=== PATIENT | female | born 1955 | race Caucasian/White ===

== ENCOUNTER → 2017-01-25 | Outpatient (CLI) | payer OTHER ==
[~2017-01-25] MED LIST: CHOL100017 PO; CYCL-208 PO; OMEG500C7 PO; PRED-214 PO; VARE1TAB PO
--- NOTE | 2017-01-25 09:00 | DI ---
Indication: ITS.REASON: Z12.2 ENCOUNTER FOR SCREENING FOR LUNG CA PROCEDURE: CT LUNG SCREENING: Encounter: Initial Comparison: None Technique: Axial noncontrast CT imaging of the chest was performed on a [employer] Aquilion Prime [address] scanner using an ACR approved low dose lung cancer screening protocol. 1 mm thick axial slices were obtained with coronal and sagittal two-dimensional reformats. Automated Exposure Control and Iterative Reconstruction dose lowering techniques were utilized. Dose (DLP): 171.6 mGy.cm Prerequisites: This exam was performed in a facility that meets the criteria for the LDCT screening program. Data regarding this exam was submitted to an approved registry. The order for this exam indicates that it came as a result of a lung cancer screening counseling and shared decision-making visit that included all of the elements required of such a visit. The radiologist interpreting this exam meets the CMS criteria for the LDCT lung cancer screening program. Standardized reporting is followed using the ACR Lung-RADS nomenclature and is extracted using a [employer] reporting system. Findings: Mild paraseptal emphysema. Minimal medial basilar atelectasis or scarring. No consolidative pneumonia. No pleural effusion or pneumothorax. Central airways are patent. No evidence of bronchial wall thickening. I do not identify any pulmonary nodules or masses. No axillary or mediastinal adenopathy. Postsurgical changes in the left breast with surgical clips near the pectoralis musculature. Heart size is normal without pericardial effusion. The upper abdomen shows no acute findings. Mild coronary artery atherosclerotic calcification. Bone windows are unremarkable. Impression: No acute abnormality. No pulmonary nodules identified. Assessment: Lung-RADS category 1: Negative. Recommend continued annual low dose CT lung cancer screening in 12 months. .
== END ==
LOC: IMA 07:42
PROVIDERS: ATTEND Nurse Practitioner Family
DX: Z12.31 Encounter for screening mammogram for malignant neoplasm of breast (principal); C50.912 Malignant neoplasm of unspecified site of left female breast; N64.59 Other signs and symptoms in breast; R92.8 Other abnormal and inconclusive findings on diagnostic imaging of breast; Z08 Encounter for follow-up examination after completed treatment for malignant neoplasm; Z12.2 Encounter for screening for malignant neoplasm of respiratory organs; Z87.891 Personal history of nicotine dependence
CPT/HCPCS: 77063; G0202; G0297

== ENCOUNTER → 2017-01-29 | Outpatient (CLI) | payer OTHER | LOC: WC.BC 10:14 | PROVIDERS: ATTEND Nurse Practitioner Family | DX: D48.61 Neoplasm of uncertain behavior of right breast (principal); R92.2 Inconclusive mammogram; N63 Unspecified lump in breast | CPT/HCPCS: 76642; G0206 ==

== ENCOUNTER → 2017-01-31 | Outpatient (CLI) | payer OTHER ==
[~2017-01-31] MED LIST changes: +LIDOCAINE 1% 30ml (STERI-PAK) ONE
== END ==
LOC: IMA 13:12
PROVIDERS: ATTEND Nurse Practitioner Family
DX: C50.411 Malignant neoplasm of upper-outer quadrant of right female breast (principal); Z17.0 Estrogen receptor positive status [ER+]; R92.2 Inconclusive mammogram
CPT/HCPCS: 19083; G0206

== ENCOUNTER → 2017-02-20 | Outpatient (CLI) | payer OTHER ==
[~2017-02-20] MED LIST changes: -LIDOCAINE 1% 30ml (STERI-PAK) ONE
== END ==
LOC: LABN 09:23
PROVIDERS: ATTEND Internal Medicine Hematology & Oncology
DX: D50.8 Other iron deficiency anemias (principal)
CPT/HCPCS: 82272

== ENCOUNTER 2017-03-08 08:56 | Day surgery (SDC) | payer OTHER ==
[~2017-03-08] VITALS: Ht 165.1 cm; Wt 104.3 kg
[~2017-03-08 08:56] MED LIST changes: +ATOR10TA64 PO; +CHOL200014 PO; -CYCL-208 PO; +FERR325C PO; +FOLI0.4T2 PO; +LIDOCAINE 1% (10mg/ml) 2ml SDV INJ ONE; +LR 1,000 ML IV SCH; +MAGN250T33 PO; +MELO-273 PO; +TRAM50TA4 PO; +TRIA1TAB3 PO
[2017-03-08 09:03] VITALS: BP 143/82; PULSE 67; RESP 14; TEMP 98.2; O2SAT 93; Ht 165.1 cm; Wt 104.3 kg
[2017-03-08] MEDS ORDERED: PROPOFOL 500mg 50 ML IV ONE ×2 (09:22→12:02)
--- NOTE | 2017-03-08 10:26 | ANESPREOP ---
Anesthesia Record Date and Time DATE: 03/08/17 TIME: 09:25 Pre-Op Diagnosis Positive Hemoccult Proposed Surgical Procedure COLONOSCOPY AND EGD NPO since: Midnight Allergies: Coded Allergies: Iodinated Contrast Media - Oral and (Verified Allergy, Severe, HIVES, 03/08) pregabalin (Verified Adverse Reaction, Mild, ACTS DRUNK, 03/08/17) Uncoded Allergies: BROCCOLI (Allergy, Severe, ANAPHLAXIS, 02/16/12) Ht/Wt/BMI Height: 5 ' 5.00 " Weight: 104.300 kg BMI: 38.3 kg/m2 Vital Signs Date Time Temp Pulse Resp B/P Pulse Ox O2 Delivery O2 Flow Rate FiO2 03/08/17 09:03 98.2 67 14 143/82 93 Room Air Medications Inpatient Medications Current Medications Medications (Trade) Dose Ordered Sig/Jeremy Start Time Stop Time Status Last Admin Dose Admin Lactated Ringer's (Lactated Ringers) 1,000 ml @ 50 mls/hr Q20H 03/08/17 07:00 Atorvastatin Calcium (Atorvastatin Calcium) 10 Mg Tablet, 1 TAB PO HS, (Reported ) Last Taken: on 03/07/17 0800 Cholecalciferol (Vitamin D) 1,000 Unit Tablet, 3,000 UNIT PO DAILY, (Reported) Last Taken: on 03/07/17 0800 Cholecalciferol (Vitamin D3) (Vitamin D3) 2, 000 Unit Tablet, 1 TAB PO BID, (Reported) Last Taken: on 03/07/17 0800 Ferrous Sulfate (Iron) 325 Mg Capsule.er, 1 TAB PO WB, (Reported) BEST WITH FOOD. Last Taken: on 03/07/17 0800 Folic Acid (Folic Acid) 0.4 Mg Tablet, 1 TAB PO DAILY, (Reported) Last Taken: on 03/07/17 0800 Magnesium Oxide (Magnesium) 250 Mg Tablet, 250 MG PO BID, (Reported) Last Taken: on 03/07/17 0800 Meloxicam (Meloxicam) 7.5 Mg Tablet, 7.5 MG PO DAILY, (Reported) Last Taken: on 03/06/17 0800 Tramadol HCl (Tramadol HCl) 50 Mg Tablet, 50 MG PO Q4H, (Reported) Take 1 tablet, by mouth, every 4 hours. Last Taken: on 02/22/17 Triamterene/Hydrochlorothiazid (Triamterene-Hctz 37.5-25 mg Tb) 1 Each Tablet, 1 TAB PO DAILY, (Reported) Last Taken: on 03/07/17 0800 Currently on Beta Leslie: No Medical/Surgical History Anesthesia PMH: Reports: *Hypertension, Anesthesia Reactions (SLOW TO WAKE, NO AIRWAY ISSUES), Arthritis, Cancer (BREAST CA HX AND CURRENT), Deep Vein Thrombosis, Hyperlipidemia, Obesity, Sleep Apnea, Denies: *Angina, *Diabetes, * Dyspnea, *[place], Asthma, CHF, COPD, CVA/Stroke/TIA, Clotting Problems, Glaucoma, Headaches (HX CLUSTER HEADACHES), Hepatitis, Hiatal Hernia, Malignant Hyperthermia, Pneumonia (HX OF), Reflux, Renal Disease, Rheumatic Fever, Seizures, Thyroid Disease, Tuberculosis Smoking Status: Former smoker Has pt. smoked today?: No Use Chewing Tobacco?: No Second Hand Exposure: No Substance Use Type: does not use Alcohol Intake: none HX of Last Menstrual Period: IN HER EARLY 50'S Past Surgical History Orthopedic Surgeries: No Abdominal Surgeries: Yes - APPY Genitourinary Surgeries: No Cardiac Surgeries: No Endocrine Surgeries: No Reproductive Surgeries: No Neurological Surgeries: No Ear Surgeries: No Nose Surgeries: No Throat Surgeries: Yes - T&A Other Surgeries: Yes - COLONOSCOPY, LEFT BREAST LUMPECTOMY Anesthesia Adverse Reactions: FOUND none Family Hx of Anesthesia Advers: none Hx of Motion Sickness: No Pertinent Findings EKG Rhythm: Sinus Rhythm EKG Ectopy: PAC Physical Exam Respiratory: Lungs clear Cardiovascular: FOUND Regular rate, rhythm Airway Assessment Mallampati Score: II TMD: 3 Fingerbreadths Neck Extension: Fair Overall Assessment: No Airway Concerns ASA: 3 Plan Anesthesia Plan: TIVA Discussion Discussed risks/options/alternatives of anesthesia and questions answered. Patient consents. Nursing pain assessment noted. Present: Spouse Attestation Statement Prior to the delivery of any anesthetic medication, I examined the patient, developed the plan, obtained the patient's consent and discussed the risk and benefits of the procedure with the patient/guardian. JOHN PAUL LINARES CRNA March 08, 2017 09:28
[2017-03-08 12:16] VITALS: BP 95/63; PULSE 76; RESP 16; TEMP 98.5; O2SAT 96
[2017-03-08 12:31] VITALS: BP 105/65; PULSE 68; RESP 20; O2SAT 98
[2017-03-08 12:46] VITALS: BP 117/72; PULSE 62; RESP 14; O2SAT 100
[2017-03-08 13:01] VITALS: BP 129/67; PULSE 63; RESP 16; TEMP 97.6; O2SAT 100
[2017-03-08 13:04] LABS: ALBUMIN 3.7 G/DL (3.5-5.0); ALBUMIN/GLOBULIN RATIO 1.4 RATIO (1.1-2.2); ALKALINE PHOSPHATASE 115 U/L (38-126); ALT (SGPT) 37 U/L (9-52); ANION GAP 13 MEQ/L (5-15); AST (SGOT) 27 U/L (14-36); BUN/CREATININE RATIO 6 RATIO (6-26); CALCIUM 8.7 MG/DL (8.4-10.2); CHLORIDE 107 MEQ/L (98-107); CO2 - CARBON DIOXIDE 26 MEQ/L (22-30); CREATININE 1.1 MG/DL (0.7-1.2); GLOMERULAR FILTRATION RATE 50; GLUCOSE 107 MG/DL (65-110); SODIUM 146 MEQ/L (134-144); TOTAL PROTEIN 6.4 G/DL (6.3-8.2)
--- NOTE | 2017-03-08 13:53 | ANESPO ---
Post-Op Note Date 03/08/17 Time: 13:11 Status Pt Participated in Evaluation: Pt participated in person Vital Signs Date Time Temp Pulse Resp B/P Pulse Ox O2 Delivery O2 Flow Rate FiO2 03/08/17 13:01 97.6 63 16 129/67 100 Room Air Respiratory Function: Airway patent Cardiovascular Function: Regular pulse Telemetry Pattern: SR Mental Status: Alert/oriented Pain Level Intensity: 0 Hydration: IV infusing Complications during Recovery None apparent Follow-Up Instructions Instructions Per Surgeon JOHN PAUL LINARES CRNA March 08, 2017 13:52
--- NOTE | 2017-03-09 11:07 | OPNOTEF ---
.DATE OF PROCEDURE. 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 PROCEDURE Esophagogastroduodenoscopy with gastric polypectomy, colonoscopy with biopsies of a suspicious mass involving ileocecal valve region via cold biopsy technique. ANESTHESIA TIVA BRIEF HISTORY/INDICATIONS Mrs. Ragland is a 61-year-old female who is known my surgical practice. I recently saw the patient in regard to a newly discovered breast cancer. The patient recently saw oncology and underwent Hemoccult card testing as a result of her anemia. These did return as positive in nature. The patient also had undergone prior Hemoccult card testing through her private care physician which was negative. Nonetheless, as a result of her newly discovered heme-positive stools and her history for anemia, it was recommended to the patient she undergo bidirectional endoscopy. Patient presents today to undergo these procedures. For completeness, please refer to notes included in the patient's chart. FINDINGS Upon upper endoscopy the patient was found to have a benign gastric polyp within the antrum of the stomach. Otherwise, esophagus, stomach and duodenum were within normal limits. Upon colonoscopy, there was no evidence for angiodysplastic lesion or gato malignancy. The patient was found a moderate number of diverticula. Unfortunately, the patient was found to have a mass involving the terminal ileum/ileocecal valve region. This mass was highly suspicious for that of underlying adenocarcinoma. Biopsies were obtained from the mass via cold biopsy technique. DESCRIPTION OF PROCEDURE After informed consent was obtained, the patient was brought to the operative suite and placed on the table in a left lateral decubitus position. The patient subsequently underwent total intravenous anesthesia by the nurse warehouse distribution associate per my request. Formal time-out was then completed. Next, an Olympus gastroscope was inserted into the oral hypopharynx and subsequently the esophagus under direct visualization. Gastroscope was advanced through the esophagus, stomach, pylorus, duodenal bulb, into second portion of duodenum. Scope was then slowly withdrawn. First and second portions of duodenum were within normal limits. No evidence of duodenitis or ulcerations was noted. There was no evidence for old blood upon the surface of the mucosa. The scope was withdrawn back to prepyloric region and antrum. Within the antrum, the patient was found to have a polyp on the order of 5-6 mm in diameter. This polyp was grasped and removed in its entirety via cold biopsy technique. A J-maneuver was performed. Cardia and fundus were within normal limits. Scope was allowed to straighten and slowly withdrawn and the remaining corpus of the stomach was well visualized, again without noted abnormalities. The scope was then withdrawn back to the level of the diaphragm. Squamocolumnar junction was located at the level of the diaphragm and was well demarcated with no endoscopic evidence for Shin's metaplasia. Scope was then slowly withdrawn and the remaining esophageal mucosa found within normal limits. Next, attention was direct towards performing a colonoscopy. First, digital examination was performed. Normal sphincter tone. No rectal masses were appreciated. An Olympus colonoscope was inserted in the anus and advanced through the lumen of the colon under direct visualization at all times until the cecum was ascertained. Triangulation of taenia coli, ileocecal valve and appendiceal were all visualized. As the scope was being slowly withdrawn, I noted an area briefly just beneath the ileocecal valve that did appear somewhat suspicious in nature. This was unable to be visualized as the scope was being advanced into the cecum. Scope was then re-advanced back into the cecum adjacent to the appendiceal lumen and a J-maneuver was then somewhat performed so that one was looking "back upward" towards the ileocecal valve. One could then see beneath the ileocecal valve a highly suspicious-appearing mass involving the terminal ileum/ileocecal valve region. This mass was biopsied and found be quite hard and friable in nature. The mass itself did appear to slightly narrow the terminal ileum as it entered into the cecal region. Scope was unable to be advanced into the terminal ileum through the ileocecal valve region. Multiple biopsies were obtained from this highly suspicious mass. It is my intuition that this mass is going to return as that of an adenocarcinoma. Scope was allowed to straighten and slowly withdrawn, again while maintaining visualization of the lumen all times. There was no evidence for angiodysplastic lesions or polyps. The patient was found to have a moderate number of diverticula within the sigmoid colon region. Colonoscope was continued to be withdrawn till it was brought forth back to rectal vault. A J-maneuver was then performed. No worrisome perianal pathology was noted. Scope was allowed to straighten and withdrawn through the anal verge. The patient tolerated the procedure without difficulty and was sent back to the preop area in stable condition. Will await the biopsy results from today's EGD and colonoscopy and proceed accordingly with further recommendations thereafter. I did inform the patient and her postoperatively that it was my clinical intuition that the mass that I had noted involving the ileocecal valve region would return as that of an adenocarcinoma. At beginning of next week, will go ahead obtain a CT scan of her abdomen and pelvis for further evaluation and plan on seeing the patient next week to address her pathology results. LISA
== END 2017-03-08 13:14 | disposition home or self-care (01) ==
LOC: SCU 08:56
PROVIDERS: ATTEND Surgery
DX: C18.0 Malignant neoplasm of cecum (principal); K57.30 Diverticulosis of large intestine without perforation or abscess without bleeding; K31.7 Polyp of stomach and duodenum; K92.1 Melena; D64.9 Anemia, unspecified; G47.33 Obstructive sleep apnea (adult) (pediatric); I10 Essential (primary) hypertension; E78.5 Hyperlipidemia, unspecified; E66.3 Overweight; Z68.38 Body mass index [BMI] 38.0-38.9, adult; Z79.899 Other long term (current) drug therapy
CPT/HCPCS: 36415; 43239; 45380; 80053; 82378; J7120

== ENCOUNTER → 2017-03-12 | Outpatient (CLI) | payer OTHER ==
[~2017-03-12] MED LIST changes: +IOHEXOL 300 MG/ML 100ml INJECTION ONE; -LIDOCAINE 1% (10mg/ml) 2ml SDV INJ ONE; -LR 1,000 ML IV SCH; +NORMAL SALINE 100 ML ONE; -OMEG500C7 PO; -PRED-214 PO; +SALINE FLUSH 10ml SYRINGE ONE; -VARE1TAB PO
--- NOTE | 2017-03-12 11:25 | DI ---
Indication: ITS.REASON: D37.4 CECAL MASS; C50.9 BREAST CA PROCEDURE: CT ABD/PELVIS W/CONTRAST ONLY: Encounter: Initial Comparison: None Technique: Axial CT images were performed through the abdomen and pelvis after the administration of intravenous contrast. Coronal and sagittal two-dimensional reformats. Automated Exposure Control and Iterative Reconstruction dose reducing techniques were utilized. Contrast: Omnipaque 300 100 mL Findings: The lung bases are grossly clear. Multiple cystic lesions seen scattered throughout the liver, several of which are too small to characterize while the larger ones measure fluid attenuation consistent with benign cysts. No enhancing liver masses or bile duct dilatation. The gallbladder appears normal. The spleen, pancreas and right adrenal gland are within normal limits. There is mild nodularity of the left adrenal gland, statistically representing a small adenoma measuring less than a centimeter in size on axial image #32. The kidneys are normal. No pelvic lymphadenopathy. Scattered atherosclerotic plaque. The bladder is normal. The uterus is grossly normal. No free fluid. No evidence of a bowel obstruction. The patient's reported cecal mass is not well seen by CT as there is no oral contrast in this region. There is a mildly enlarged lymph node seen near the ileocecal valve on axial image #46 measuring 1.1 cm in short axis. No additional adenopathy seen. Bone windows show mild degenerative change in the spine. Impression: Poor visualization of the patient's known cecal mass. One adjacent mildly enlarged mesenteric lymph node raises concern for possible local metastasis. No evidence of distant metastatic disease in the abdomen or pelvis. .
== END ==
LOC: IMA 08:45
PROVIDERS: ATTEND Surgery
DX: D37.4 Neoplasm of uncertain behavior of colon (principal); C50.919 Malignant neoplasm of unspecified site of unspecified female breast
CPT/HCPCS: 74177; J7050; Q9967

== ENCOUNTER 2017-03-30 09:54 | Inpatient (IN) ==
[~2017-03-30 09:54] MED LIST changes: -ATOR10TA64 PO; +CEFAZOLIN 1 G INJECTION IV ONE; -CHOL100017 PO; -CHOL200014 PO; +ERTAPENEM 1 G in NS 100 ML IV ONE; -FERR325C PO; -FOLI0.4T2 PO; +HEPARIN SUB-Q 5,000 UNITS/0.5 ML INJECTION SQ SCH; -IOHEXOL 300 MG/ML 100ml INJECTION ONE; +LIDOCAINE 1% (10mg/ml) 2mL INJ PF SDV ID ONE; -MAGN250T33 PO; -MELO-273 PO; -NORMAL SALINE 100 ML ONE; -SALINE FLUSH 10ml SYRINGE ONE; -TRAM50TA4 PO; -TRIA1TAB3 PO
[2017-03-30] MEDS: LR 1,000 ML IV SCH (11:20)
[2017-03-30] MEDS: NS 1,000 ML IV SCH ×2 (11:27→19:13)
--- NOTE | 2017-03-30 11:44 | Anesthesia Preoperative Report ---
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 Proposed Procedure: robotic assisted hysterectomy salpingoophrectomy, right hemicolectomy NPO since: mn Allergies/Adverse Reactions: Allergies Allergy/AdvReac Type Severity Reaction Status Date / Time Iodinated Contrast Media - Allergy Severe HIVES Verified 03/30/17 10:43 Oral and pregabalin AdvReac Mild ACTS DRUNK Verified 03/30/17 10:43 BROCCOLI Allergy Severe ANAPHLAXIS Uncoded 03/30/17 10:43 - Vital Signs Vital Signs: Temp Pulse Resp BP Pulse Ox 98.4 F 66 18 124/83 93 03/30/17 10:17 03/30/17 10:45 03/30/17 10:17 03/30/17 10:17 03/30/17 10:17 - Medications Inpatient Medications: Current Medications Heparin Sodium (Porcine) (Heparin Sq) 5,000 units SQ Q8HR RAYMOND Lactated Ringer's (Lactated Ringers) 1,000 mls @ 100 mls/hr IV .Q10H RAYMOND Last Admin: 03/30/17 11:20 Dose: 100 mls/hr Sodium Chloride (Normal Saline) 1,000 mls @ 50 mls/hr IV .Q20H RAYMOND Last Admin: 03/30/17 11:27 Dose: 50 mls/hr Home Medications: Home Medications Medication Instructions Recorded Confirmed Type Atorvastatin Calcium 1 tab PO HS #0 tab 03/07/17 03/30/17 History Ferrous Sulfate [Iron] 1 tab PO WB #0 tab 03/07/17 03/30/17 History Folic Acid 1 tab PO DAILY #0 tab 03/07/17 03/30/17 History Magnesium Oxide [Magnesium] 250 mg PO DAILY #0 tab 03/07/17 03/30/17 History Meloxicam 7.5 mg PO BID #0 tab 03/07/17 03/30/17 History Tramadol HCl 50 mg PO Q4H PRN #0 tab 03/07/17 03/30/17 History Triamterene-Hctz 37.5-25 mg Cp 1 tab PO DAILY 03/29/17 03/30/17 History Cholecalciferol (Vitamin D3) 3,000 unit PO DAILY 03/30/17 03/30/17 History [Vitamin D3] Montelukast [Singulair] 1 tab PO DAILY 03/30/17 03/30/17 History Nabumetone [Relafen] 500 mg PO BID 03/30/17 03/30/17 History - Medical History Respiratory: Reports: Sleep Apnea (uses cpap ) Cardiovascular: Reports: Hypertension Other History: Reports: Anesthesia Reactions (slow to wake up ) - Surgical History HEENT Surgeries: Reports: Tonsillectomy Respiratory Surgery/Treatments: Reports: CPAP Use GI Surgery/Treatments: Reports: Appendectomy, Other (IBS,CONSTIPATION) Reproductive Surgery/Treatment: Reports: Lumpectomy (left) - Social History Smoking Status: Former smoker - Pertinent Findings Laboratory: CBC and BMP 03/30/17 10:33 03/30/17 10:33 BMP 03/30/17 10:33 Sodium 143 Potassium 3.1 L Chloride 103 Carbon Dioxide 26 BUN 7.0 Creatinine 1.0 Glucose 109 Calcium 9.4 Liver Function 03/30/17 Range/Units 10:33 Total Bilirubin 0.60 (0.20-1.30) MG/DL AST 25 (14-36) U/L ALT 34 (9-52) U/L Alkaline Phosphatase 143 H (38-126) U/L Albumin 4.3 (3.5-5.0) G/DL Urine 03/30/17 Range/Units 10:14 Urine Color Yellow (YELLOW) Urine Clarity Clear Urine pH 6.5 (5.0-8.0) Ur Specific [place] <=1.005 L (1.015-1.025) Urine Protein Negative (NEGATIVE) Urine Glucose (UA) Negative (NEGATIVE) EKG Rhythm: Normal Sinus Rhythm - Physical Exam Respiratory Exam: Present: lungs clear, bilateral breath sounds equal Cardiovascular Exam: Present: regular rate and rhythm, no murmur - Airway Assessment Mallampati Score: II TMD: 3 Fingerbreadths Neck Extension: good Overall Assessment: no airway concerns - ASA ASA Score: 3 - Plan Anesthesia: General Inhalation Gases - Discussion Discussion: Discussed risks/options/alternatives of anesthesia and questions answered. Patient consents. Nursing pain assessment noted. Attestation Statement: Prior to the delivery of any anesthetic medication, I examined the patient, developed the plan, obtained the patient's consent and discussed the risk and benefits of the procedure with the patient/guardian.
[2017-03-30] MEDS ORDERED: SCOPOLAMINE 1.5 MG PATCH TD ONE (11:56)
[2017-03-30] MEDS ORDERED: ACETAMINOPHEN IV 1,000 MG/100 ML VIAL IV ONE (12:00)
[2017-03-30] MEDS ORDERED: ESMOLOL IV ONE ×2 (12:17→14:45)
[2017-03-30] MEDS ORDERED: KETAMINE IV ONE ×2 (12:17→14:45)
[2017-03-30] MEDS ORDERED: [UNRECOGNIZED DRUG - OTHER] IV ONE ×2 (12:17→14:45)
[2017-03-30] MEDS ORDERED: PROPOFOL IV ONE ×2 (12:17→14:45)
[2017-03-30] MEDS ORDERED: LIDOCAINE 2% IV ONE ×2 (12:17→14:45)
[2017-03-30] MEDS ORDERED: BUPIVACAINE 0.25% (2.5mg/ml) PF 30ml INJECTION ID ONE (12:55)
--- NOTE | 2017-03-30 14:18 | OB/GYN Procedure Note ---
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
[2017-03-30] MEDS ORDERED: INDOCYANINE GREEN 25mg INJECTION IVP ONE (16:34)
[2017-03-30] MEDS ORDERED: NS 1,000 ML IV SCH (19:45)
[2017-03-30] MEDS ORDERED: MORPHINE SULFATE 4 MG SYRINGE IVP PRN (19:45)
[2017-03-30] MEDS ORDERED: METOCLOPRAMIDE 10mg/2ml INJECTION IVP PRN (19:45)
[2017-03-30] MEDS ORDERED: HYDROMORPHONE PCA 30mg/30ml VIAL IV PRN (19:45)
[2017-03-30] MEDS ORDERED: HYDROMORPHONE 2 MG/ML INJECTION IVP PRN (19:54)
--- NOTE | 2017-03-30 19:58 | General Surgery Procedure Note ---
Date of Procedure: 03/30/17 Surgeon: Ravi Supervisor Labor Gang: Onur Rader APRN Postoperative Diagnosis: Ascending colon cancer Procedure: Procedures Operation Date: 03/30/17 12:20 Actual Procedures s Robot Assisted Lap. Hysterectomy BSO - Sumaya Estrada MD p Robot Assisted Lap Resection Colon Right - Pa Rodrigues MD Estimated Blood Loss: See Anesthesia Record. Pathology: other (right colon and terminal ileum)
[2017-03-30] MEDS ORDERED: PROMETHAZINE 25 MG INJECTION IVP ONE (20:21)
[2017-03-30] MEDS ORDERED: NABUMETONE 500 MG TABLET PO SCH (21:00)
--- NOTE | 2017-03-30 21:50 | Operative Note ---
DATE OF SERVICE 03/30/2017 SURGEON Pa Rodrigues MD GRAVEL TRUCK [employer]IVER Onur Rader APRN PREOPERATIVE DIAGNOSIS Invasive adenocarcinoma involving ileocecal valve region. POSTOPERATIVE DIAGNOSIS Invasive adenocarcinoma involving ileocecal valve region. PROCEDURE Robotic-assisted laparoscopic right hemicolectomy. ANESTHESIA General endotracheal. EBL/FLUIDS Please see chart. BRIEF HISTORY/INDICATIONS Mrs. Ragland is a 62-year-old female who had a history for anemia of unknown etiology. Should did undergo bidirectional endoscopy and unfortunately was found to have a suspicious lesion involving the ileocecal valve region. This was biopsied and returned as that of adenocarcinoma. Patient also had known breast cancer. It was elected that we would initially proceed with surgical management of her colon cancer before proceeding with management of her breast cancer. The patient was sent to Oncology and did undergo genetic testing. 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 It was therefore also recommended at the same setting that she undergo hysterectomy and bilateral salpingo-oophorectomy. This was performed by Dr. Sumaya Estrada. This portion of the procedure will be dictated by Dr. Estrada. For completeness please refer to notes included in the patient's chart. FINDINGS Upon laparoscopy the liver edge smooth without nodularities. Visibly there was no "puckering" of the serosa near the ileocecal region. Visibly one could not see any significantly enlarged lymph nodes within the root of the right mesentery. Small bowel, omentum, colon which was visualized was within normal limits. A standard right hemicolectomy was completed. This surgery was somewhat difficult as a result of the patient's obesity and the associated increased intraperitoneal fat. Additionally, the patient had somewhat of a redundant hepatic flexure which also slightly increased the difficulty of the procedure. DESCRIPTION OF PROCEDURE After informed consent was obtained the patient was brought to the operative suite and had undergone AIRAM-BSO by Dr. Sumaya Estrada. As stated above, this portion of the procedure will be dictated by Dr. Estrada. The patient remained under general anesthetic and the ports that were placed during her da Dominga TSH- BSO were removed under direct visualization. A few of the ports were left in the same location. The fascia at the 12-mm camera port that had been used for her hysterectomy was closed in a [id number] fashion with 0-Vicryl laparoscopically. The camera port was then moved to a separate location then above the umbilicus. Camera port was placed under direct visualization caudad and to the left of the umbilicus. Additional 8-mm da Dominga port was then placed within the epigastric region. The patient had an AirSeal port within the left upper quadrant. This AirSeal port was replaced with a stapler da Dominga port. This was again placed under direct visualization. The AirSeal port that had been within the left upper quadrant was then utilized as an assist port and was placed within the left lower quadrant under direct visualization. Additionally, two 8-mm ports were also placed within the suprapubic region as well as within the epigastric region. Each port site was placed under direct visualization. The patient was then placed in reverse Trendelenburg and rotated to her left. Small bowel was then gently dissected away to the patient's left abdomen so that one could see the right mesocolon. Right colon and terminal ileum was somewhat abnormal in its location in the fact that it was adherent along the right lateral pelvic wall and the right lateral abdominal wall. There was a considerable amount of omentum covering the right mesocolon. The omentum was grasped and retracted in a cephalad fashion up towards the liver. Again, the abdominal cavity was explored via laparoscopic with findings as noted above. I did not see any evidence for obvious metastatic disease. Next, the robot was then docked overlying the patient's right shoulder somewhat at a 45-degree angle. A Graptor retractor was placed within robotic arm #3. Hook cautery was placed in robotic arm #1. Fenestrated bipolar grasper was placed in robotic arm #2. Next, the right colon was grasped via the Graptor and retracted further out laterally so that the right mesocolon was somewhat tented in nature. One could then see the anatomic location of the origin of the right ileocolic vessels. The mesentery just caudad to the origin of the ileocolic vessel was then incised with hook cautery. The mesentery was then continued to be opened caudally towards the terminal ileum. Dissection was carried down carefully into the retroperitoneal space. The mesocolon was then reflected anteriorly and the retroperitoneum was gently reflected posteriorly. One could see the right ureter once the retroperitoneal space had been entered. Right ureter was kept under direct visualization and preserved in its entirety. The mesentery to the terminal ileum was then divided under direct visualization with a vessel sealer up to the terminal ileum. The mesenteric resection upon the terminal ileum was approximately 8 cm proximal to the ileocecal valve region. Next, attention was then focused back towards the right ileocolic vessels at their origin. I continued to create the retroperitoneal space behind the right mesocolon and behind the right ileocolic vessels. A small opening was then created within the mesentery cephalad to the right ileocolic vessels. At this point in time the ileocolic vessels had been dissected free circumferentially near its origin. Two Hem-o-michael clips were then placed proximally upon the ileocolic vessels near their origin. Ileocolic vessel was then transected distal to the previously placed Hem-o-Michael clips. One could then see the duodenum again located just cephalad to the origin of the ileocolic vessels. The duodenum was continued be reflected posteriorly. Next, the mesentery was then divided under direct visualization up to the transverse colon just to the right of the middle colic vessels. The mesentery at this point in time had been completely divided to the terminal ileum, right colon and hepatic flexure region. Attention was then directed towards mobilization of the hepatic flexure. The gastrocolic ligament was then begun to be divided utilizing the vessel sealer just to the right of the midportion of the transverse colon. Omentum was continued to be divided within the avascular space adjacent to the transverse colon. Hepatic flexure was somewhat more redundant than typical and was actually somewhat adherent along the inferior edge of the right lobe of the liver as well as out laterally along the lateral abdominal wall. Hepatic flexure was taken down under direct visualization and continued to be reflected in a cephalad-to- caudad direction and slightly medial as well. Eventually, the hepatic flexure was able to be completely immobilized. This dissection was somewhat difficult given the patient's obesity and increased omental fat at this location. This portion did take slightly longer than usual. Eventually, however, the hepatic flexure was able to be completely mobilized. As this was being performed one could see the duodenum which was gently continued to be dissected posteriorly and away from the hepatic flexure region. There was still some remaining mesentery that was present anterior to the duodenum near the hepatic flexure region. This remaining mestenery was divided with vessel sealer. Next, the white line of Toldt along the right pericolic gutter was incised with the vessel sealer. At this point in time the terminal ileum, right colon, hepatic flexure was completely freed as well as a complete mesenteric resection of the right mesocolon. Attention was directed towards division of the terminal ileum and transverse colon. Da Dominga stapler was utilized and the terminal ileum and transverse colon was then divided at the site of the mesenteric resection. Terminal ileum was then imbricated to the transverse colon in an isoperistaltic fashion. This was accomplished by placing two stay sutures of 3-0 Vicryl along the antimesenteric portion of the terminal ileum and obtaining a small purchase of the antimesenteric taeniae coli of the transverse colon. Enterotomy was then performed upon the terminal ileum about 2 cm proximal to the staple line. Colotomy was then created at this same location along the antimesenteric taeniae coli of the transverse colon. Da Dominga stapler was then reloaded and placed into the enterotomy colotomy and aligned along the antimesenteric borders of the terminal ileum and transverse colon and fired. Da Dominga stapler was then reloaded and fired a second time along the antimesenteric borders. The common enterotomy colotomy was then closed in two layers. The first layer was closed in a running fashion utilizing 3-0 V-Loc suture. The initial suture line was then oversewn by placing multiple Lembert sutures utilizing 3-0 Vicryl. This resulted in complete imbrication of the terminal ileum and transverse colon overlying the initial suture line. It should also be noted that prior to performing the anastomosis I did have Anesthesia inject ICG intravenously. Firefly imaging was utilized and the terminal ileum and remaining transverse colon at the site of the anastomosis fluoresced quite well. Additionally, the remaining small bowel was also visualized via the laparoscope and fluoresced quite well. Once the anastomosis was completed, attention was directed towards closure and removal of the specimen. The robot was undocked. Small Pfannenstiel incision was then performed just above the suprapubic region. The Pfannenstiel incision itself was perhaps on the order of 6-7 cm in total length. Anterior rectus sheath was opened transversely. The posterior rectus sheath and peritoneum was then opened between the rectus muscles. Natanael wound retractor was then placed through the Pfannenstiel incision and into the peritoneal cavity. The specimen had initially been grasped by my patient assistant utilizing a Wavy grasper. The Wavy grasper was utilized to deliver the terminal ileum up into the Natanael wound retractor. Specimen was then grasped and brought forth up through the Natanael wound retractor without difficulty. Pneumoperitoneum was then reestablished. I did go ahead and place a lap pad within the peritoneal cavity through the Natanael wound retractor. This was then used to facilitate visualization of the prior areas of dissection. Irrigation was performed and all irrigant was suctioned until clear. Prior areas of surgical dissection were hemostatic in nature. There was no evidence for bleeding. Lap pad was then removed through the Natanael wound retractor. The fascia at the stapler port and the camera port was closed laparoscopically utilizing a laparoscopic suture passer and 0-Vicryl suture. [id number]-[id number]-bebna suture was placed at the fascial level at both of these port sites. Next, the remaining ports were removed under visualization. The Natanael wound retractor was then removed and the Pfannenstiel incision was closed in two layers. Posterior rectus sheath and peritoneum was closed in a running fashion with #1 PDS suture. Anterior rectus sheath was then closed in a running fashion with #1 PDS suture. Subcutaneous tissues were closed in a running fashion. All skin incisions were closed with danita. Patient has awakened from her anesthetic and currently is in ICU in stable condition. Additionally, it should be noted that Onur Rader APRN, was present throughout the entire case and played a pivotal role in providing assistance and exposure during the course of the procedure. LISA
[2017-03-30] MEDS: D5-1/2NS with KCL 20mEq 1,000 ML IV SCH (23:40)
[2017-03-30] MEDS: ATORVASTATIN 10 MG TABLET PO SCH (23:45)
--- NOTE | 2017-03-31 04:36 | Anesthesia Postoperative Note ---
- Date and Time Date: 03/31/17 Time: 04:10 - Status Patient Participated in Evaluation: Patient Participated in Person Vital Signs: Temp Pulse Resp BP Pulse Ox 97.6 F 83 19 128/74 95 03/31/17 00:00 03/31/17 00:00 03/31/17 00:00 03/31/17 00:00 03/31/17 00:00 Respiratory Function: Airway Patent Cardiovascular Function: Regular Pulse EKG Rhythm: Normal Sinus Rhythm Mental Status: Lethargic Hydration: IV Infusing Complications During Recover: None Apparent - Follow-Up Instructions Instructions: Per Surgeon
[2017-03-31] MEDS ORDERED: FERROUS SULFATE PO SCH (08:00)
[2017-03-31] MEDS: ONDANSETRON 4 MG/2 ML INJECTION IVP PRN ×2 (08:08→15:07)
[2017-03-31] MEDS: D5-1/2NS with KCL 20mEq 1,000 ML IV SCH ×2 (08:13→17:30)
[2017-03-31] MEDS: FOLIC ACID 1 MG TABLET PO SCH (09:27)
[2017-03-31] MEDS: MAGNESIUM OXIDE 400 MG TABLET PO SCH (09:27)
[2017-03-31] MEDS: TRIAMTERENE/HCTZ 37.5 MG-25 MG TABLET PO SCH (09:28)
[2017-03-31] MEDS: PANTOPRAZOLE 40 MG INJECTION IVP SCH (09:28)
--- NOTE | 2017-03-31 11:00 | Operative Note ---
DATE OF OPERATION 03/30/2017 PREOPERATIVE DIAGNOSES 1. 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 2. Colon cancer. 3. Breast cancer. POSTOPERATIVE DIAGNOSES 1. 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 2. Colon cancer. 3. Breast cancer. PROCEDURE Robotic-assisted laparoscopic hysterectomy and bilateral salpingo-oophorectomy. SURGEON Dr. Sumaya Estrada ANESTHESIA General endotracheal by Sal Montano CRNA. COMPLICATIONS None. EBL 50 mL. FINDINGS Normal-sized uterus. Normal-appearing ovaries. Tubes status post ligation. There was a little extra tissue possible nodule in the left tube. Normal- appearing liver and gallbladder edge. Absent appendix. DESCRIPTION OF PROCEDURE The patient was taken to the operating room where anesthesia was obtained. She was placed in the lithotomy position and prepared and draped in a normal sterile fashion. A Hatch catheter was placed in her bladder. An open-sided speculum was placed in the vagina. The anterior cervix was grasped with a tenaculum. The uterus sounded to 7 cm, so a 6 cm tip was chosen for the arch manipulator as well as a 3 cm cup. A [id number] of 0 Vicryl was placed on the cervix for retraction. The cervix was dilated to 19- Citizen [place]. The arch manipulator was placed through the cervix and secured into place. The patient's legs were lowered, gloves were changed, and attention was turned to the abdomen. All skin incisions were injected with 0.25% Marcaine prior to incision. A 12- mm supraumbilical incision was made and a Veress needle was placed. A hanging drop confirmed intraabdominal placement. The abdomen was insufflated with CO2. A 12-mm bladeless trocar was placed and camera again confirmed intraabdominal placement. She was placed in a small amount of Trendelenburg. The 8-mm ports were placed bilaterally approximately 10 cm off the midline under direct visualization. An 8-mm elder assistant port was placed in the left upper quadrant also under direct visualization. The AirSeal device was connected to this port. The patient was placed in steep Trendelenburg. The bowels were swept out of the posterior cul-de-sac, and she was brought back to approximately 23 degrees. The robot was brought up to the bedside and docked. A fenestrated bipolar was placed in the left hand and monopolar scissors in the right hand. The ureters were easily identified. The left round ligament was cauterized and transected. The left retroperitoneum was opened. Small adhesions between the sigmoid and left infundibulopelvic ligaments were taken down. The left IP ligament was cauterized multiple times and transected with good hemostasis noted. The anterior leaf of the broad ligament was opened to the midline at the level of the vaginal cuff ring and then opened to the right round ligament. This was cauterized and transected. The right retroperitoneum was opened. Small adhesions from the small bowel to the right IP ligament were sharply taken down. The right IP ligament was then cauterized multiple times and transected with good hemostasis noted. The bladder was carefully dissected off of the cervix past the level of the vaginal cuff ring using the monopolar scissors. She had a large redundant bladder. The uterine vasculature was skeletonized bilaterally. Then the vasculature was cauterized multiple times and transected with good hemostasis noted. An anterior colpotomy was created and carried around circumferentially until the entire cervix had been excised from the vagina. The uterus, cervix, tubes, and ovaries were all delivered through the vagina. The vaginal cuff was closed with running V-Loc suture. My elder assistant held up the redundant bladder while I sewed. The vaginal cuff angles were plicated to the ipsilateral uterosacral ligaments. The bladder was then filled with saline and no obvious leakage was noted. The bladder was drained. The pelvis was irrigated and good hemostasis was noted. The pressure was dropped in the abdomen and good hemostasis was still seen from all pedicles. The robot was undocked. The pelvis was inspected one final time. Attention was turned to the vagina. The vaginal cuff was noted to be intact and hemostatic. At this point, sponge and sharp counts were correct. The patient had tolerated the procedure well. The patient was then turned over to Dr. Rodrigues for a right hemicolectomy for her colon cancer. LISA
[2017-03-31] MEDS ORDERED: ERTAPENEM 1 G in NS 100 ML IV ONE (12:00)
--- NOTE | 2017-03-31 14:20 | OB/GYN Progress Note ---
OSCILLOGRAPH TECHNICIAN Post Op Progress Note - General POD:: POD1 Pain: contolled Voiding: castellon still in place Nausea or Vomiting: No - Objective Vital Signs: Temp Pulse Resp BP Pulse Ox 98.2 F 77 18 114/59 99 03/31/17 11:58 03/31/17 11:58 03/31/17 11:58 03/31/17 11:58 03/31/17 11:58 Urine Output: good General: alert and oriented Abdomen: non-tender, soft, non-distended Incision: dressed Incision: I removed 2 of the smaller dressings from my part of the surgery. These incisions were normal. Extremities: non-tender Laboratory Results: 03/31/17 04:50 03/31/17 04:50 Labs: UA Ur Collection Type Urine, clean catch 03/30/17 10:14 Urine Color Yellow (YELLOW) 03/30/17 10:14 Urine pH 6.5 (5.0-8.0) 03/30/17 10:14 Ur Specific [place] <=1.005 (1.015-1.025) L 03/30/17 10:14 Urine Protein Negative (NEGATIVE) 03/30/17 10:14 Urine Glucose (UA) Negative (NEGATIVE) 03/30/17 10:14 Urine Ketones Negative (NEGATIVE) 03/30/17 10:14 Urine Occult Blood Negative (NEGATIVE) 03/30/17 10:14 Urine Nitrate Negative (NEGATIVE) 03/30/17 10:14 Urine Bilirubin Negative (NEGATIVE) 03/30/17 10:14 Urine Urobilinogen 0.2 EU/DL (NORMAL) 03/30/17 10:14 Ur Leukocyte Esterase Negative (NEGATIVE) 03/30/17 10:14 - Assessment (1) Status post laparoscopic hysterectomy Comment: s/p Right hemicolectomy by Dr. Rodrigues. - Plan Plan Comments: Doing well from an hysterectomy standpoint. Care per Dr. Rodrigues.
[2017-03-31] MEDS: ENOXAPARIN 40 MG/0.4 ML INJECTION SQ SCH (15:30)
--- NOTE | 2017-03-31 17:53 | Progress Note ---
DATE OF SERVICE 03/31/2017 FINDINGS Mrs. Ragland was doing quite well this morning despite having such a long surgery yesterday. She denied much in the way of significant abdominal discomfort. She did have some mild nausea which was controlled with antiemetic. PHYSICAL EXAMINATION VITAL SIGNS: Afebrile. Normotensive. Please refer to EMR. CHEST: Clear to auscultation bilaterally. HEART: Regular rate and rhythm. Normal S1 and S2 without gallops, murmurs or clicks. ABDOMEN: Palpation of the abdomen today reveals some minimal incisional tenderness. There was no evidence for guarding or rebound. LABORATORY/RADIOGRAPH EVALUATION Patient had a CBC today, and her white count was slightly elevated at 13.7. This is most likely the result of stress associated with the surgery. Hemoglobin overall is stable at 11.5. BMP obtained and found to be without marked abnormalities. ASSESSMENT A 62-year-old female status post robotic-assisted laparoscopic right hemicolectomy secondary to invasive adenocarcinoma, robotic-assisted AIRAM-BSO performed by Dr. Estrada. Patient currently doing quite well. PLAN We will go ahead and keep the patient in the ICU today for closer monitoring. We will plan on transferring out tomorrow. Dr. Tobin who will be covering for me over the course of the remaining weekend. I am pleased with the patient's progress at this time. LISA
[2017-03-31] MEDS: ATORVASTATIN 10 MG TABLET PO SCH ×2 (20:23→23:16)
[2017-03-31] MEDS: MONTELUKAST 10 MG TABLET PO SCH ×2 (20:25→23:16)
[2017-04-01] MEDS: D5-1/2NS with KCL 20mEq 1,000 ML IV SCH ×4 (01:37→18:35)
[2017-04-01] MEDS ORDERED: ENOXAPARIN 40 MG/0.4 ML INJECTION SQ SCH (09:00)
[2017-04-01] MEDS: FOLIC ACID 1 MG TABLET PO SCH (09:50)
[2017-04-01] MEDS: TRIAMTERENE/HCTZ 37.5 MG-25 MG TABLET PO SCH (09:51)
[2017-04-01] MEDS: MAGNESIUM OXIDE 400 MG TABLET PO SCH (09:53)
[2017-04-01] MEDS: ENOXAPARIN 40 MG/0.4 ML INJECTION SQ SCH (09:56)
[2017-04-01] MEDS: PANTOPRAZOLE 40 MG INJECTION IVP SCH (10:18)
--- NOTE | 2017-04-01 10:44 | Progress Note ---
DATE 04/01/2017 POSTOPERATIVE DAY #2 HISTORY The patient is in the intensive care unit. She has been ambulating in the intensive care unit this morning. The patient is taking a clear liquid diet in small amounts. She is having no nausea or vomiting. She does have good pain control. She sometimes has a headache when she uses the intravenous Dilaudid with ARMHOLE SEWER. She is doing well overall. PHYSICAL EXAMINATION VITAL SIGNS: Pulse is 75. Respiratory rate is 20. Blood pressure is 117/68. Oxygen saturation is 96% on oxygen at 1 liter per minute by nasal cannula. ABDOMEN: Dressings are in place over some of the abdominal incisions. Other laparoscopy incisions without dressings look good. INTAKE AND OUTPUT Urine output is good. IMPRESSION Doing well following robotic-assisted laparoscopic right hemicolectomy on 2016. PLAN 1. Discontinue Hatch catheter. 2. Transfer patient from intensive care unit out to a room on the surgery unit today. LISA
--- NOTE | 2017-04-01 12:06 | OB/GYN Progress Note ---
RADAR OPERATOR Post Op Progress Note - General POD:: POD2 Pain: contolled Voiding: Hatch just removed. Nausea or Vomiting: No Ambulating: Yes (She walked from the ICU to her current room.) Subjective Comments: She's tolerating clear liquids. No flatus yet. - Objective Vital Signs: Temp Pulse Resp BP Pulse Ox 97.5 F 81 18 125/67 92 04/01/17 11:04 04/01/17 11:04 04/01/17 11:08 04/01/17 11:04 04/01/17 11:04 Urine Output: good General: alert and oriented Abdomen: non-tender, soft Abdomen: Mildly distended. Incision: normal, dry Incision: Dressings removed. Mild ecchymosis. Extremities: non-tender Laboratory Results: 03/31/17 04:50 03/31/17 04:50 Labs: UA Ur Collection Type Urine, clean catch 03/30/17 10:14 Urine Color Yellow (YELLOW) 03/30/17 10:14 Urine pH 6.5 (5.0-8.0) 03/30/17 10:14 Ur Specific [place] <=1.005 (1.015-1.025) L 03/30/17 10:14 Urine Protein Negative (NEGATIVE) 03/30/17 10:14 Urine Glucose (UA) Negative (NEGATIVE) 03/30/17 10:14 Urine Ketones Negative (NEGATIVE) 03/30/17 10:14 Urine Occult Blood Negative (NEGATIVE) 03/30/17 10:14 Urine Nitrate Negative (NEGATIVE) 03/30/17 10:14 Urine Bilirubin Negative (NEGATIVE) 03/30/17 10:14 Urine Urobilinogen 0.2 EU/DL (NORMAL) 03/30/17 10:14 Ur Leukocyte Esterase Negative (NEGATIVE) 03/30/17 10:14 - Assessment (1) Status post laparoscopic hysterectomy Comment: s/p Right hemicolectomy by Dr. Rodrigues. - Plan Plan Comments: Doing well from a RADAR OPERATOR standpoint. I'll sign off from this hospital visit and see her in the office for a postop visit. Instructed her in nothing per vagina for 6 weeks.
[2017-04-01] MEDS: HYDROCODONE/APAP 5mg/325mg TABLET PO PRN (16:44)
[2017-04-01] MEDS: LR 1,000 ML IV SCH (17:21)
[2017-04-01] MEDS: ATORVASTATIN 10 MG TABLET PO SCH (22:18)
[2017-04-01] MEDS: MONTELUKAST 10 MG TABLET PO SCH (23:28)
[2017-04-02] MEDS: D5-1/2NS with KCL 20mEq 1,000 ML IV SCH (03:08)
[2017-04-02] MEDS: HYDROCODONE/APAP 5mg/325mg TABLET PO PRN ×2 (05:36→14:19)
--- NOTE | 2017-04-02 09:16 | Progress Note ---
DATE 04/02/2017 FINDINGS Mrs. Ragland was in good spirits this morning. She denied much in the way of abdominal pain. She has had some minimal nausea with ambulation but denies any nausea with eating. She has passed flatus. VITALS: Afebrile. Normotensive. Please refer to EMR. ABDOMEN: Soft. Minimal incisional tenderness. LABORATORY/RADIOGRAPH EVALUATION The patient had CBC today that was unremarkable. Hemoglobin has drifted down slightly to 10.0. White count is 9.2. BMP obtained and found to be essentially within normal limits. ASSESSMENT 62-year-old female status post robotic-assisted laparoscopic right hemicolectomy , AIRAM-BSO. Patient doing well. PLAN Will go ahead and hep lock IV fluids. DC COLLAR BASTER. Advance diet as tolerated. If the patient continues to progress in this fashion, she perhaps could be discharged tomorrow. I am pleased with the patient's progress at this time. MTDD
[2017-04-02] MEDS: PANTOPRAZOLE 40 MG INJECTION IVP SCH (09:35)
[2017-04-02] MEDS: FOLIC ACID 1 MG TABLET PO SCH (09:37)
[2017-04-02] MEDS: MAGNESIUM OXIDE 400 MG TABLET PO SCH (09:37)
[2017-04-02] MEDS: ENOXAPARIN 40 MG/0.4 ML INJECTION SQ SCH (09:38)
[2017-04-02] MEDS: SALINE FLUSH 10ml SYRINGE IVF PRN ×2 (09:39→14:20)
[2017-04-02] MEDS: TRIAMTERENE/HCTZ 37.5 MG-25 MG TABLET PO SCH (09:40)
--- NOTE | 2017-04-02 09:46 | General Surgery Progress Note ---
Subjective Patient reports: no new complaints, no flatus - Vital Signs Vital Signs: Last Vital Signs Temp 97.9 F 04/02/17 08:29 Pulse 79 04/02/17 08:29 Resp 16 04/02/17 08:29 BP 118/69 04/02/17 08:29 Pulse Ox 92 04/02/17 08:29 - Normal Exam General: awake, alert Cardiovascular: regular rhythm Additional Normal Findings: Laboratory Tests 03/31/17 03/31/17 04/02/17 04:50 04:50 04:29 WBC 13.7 H D 9.2 Hgb 11.5 L 10.0 L D Plt Count 225 Sodium 145 H Potassium 3.7 D BUN 11.0 D Creatinine 1.0 04/02/17 04:29 WBC Hgb Plt Count Sodium 142 Potassium 3.7 BUN 6.0 L Creatinine 0.9 Hospital Course Summary Disclaimer: The visit summary below is not to be considered part of the above Progress Note. Hospital Course: 03/30/2017 Mrs. Ragland is a 62-year-old female who had a history for anemia of unknown etiology. Should did undergo bidirectional endoscopy and unfortunately was found to have a suspicious lesion involving the ileocecal valve region. This was biopsied and returned as that of adenocarcinoma. Patient also had known breast cancer. It was elected that we would initially proceed with surgical management of her colon cancer before proceeding with management of her breast cancer. The patient was sent to Oncology and did undergo genetic testing. 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 It was therefore also recommended at the same setting that she undergo hysterectomy and bilateral salpingo- oophorectomy. This was performed by Dr. Sumaya Estrada. This portion of the procedure will be dictated by Dr. Estrada. For completeness please refer to notes included in the patient's chart. 03/31/2014 A 62-year-old female status post robotic-assisted laparoscopic right hemicolectomy secondary to invasive adenocarcinoma, robotic-assisted AIRAM-BSO performed by Dr. Estrada. Patient currently doing quite well. PLAN We will go ahead and keep the patient in the ICU today for closer monitoring. We will plan on transferring out tomorrow. Dr. Tobin who will be covering for me over the course of the remaining weekend. I am pleased with the patient's progress at this time. 04/01/2014 IMPRESSION Doing well following robotic-assisted laparoscopic right hemicolectomy on 2016. PLAN 1. Discontinue Hatch catheter. 2. Transfer patient from intensive care unit out to a room on the surgery unit today. 04/02/17 09:43 Will go ahead and hep lock IV fluids. 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 Advance diet as tolerated. If the patient continues to progress in this fashion, she perhaps could be discharged tomorrow. I am pleased with the patient's progress at this time. Sepsis Assessment - Evaluation Sepsis screening result: No Definite Risk - Focused Exam Vital Signs Temp Pulse Resp BP Pulse Ox 04/02/17 08:29 97.9 F 79 16 118/69 92 04/02/17 08:28 16 04/02/17 04:07 18 04/02/17 04:05 98.4 F 77 18 102/64 95 04/01/17 23:52 18 04/01/17 23:41 98.5 F 82 18 109/69 90
[2017-04-02] MEDS: ONDANSETRON 4 MG/2 ML INJECTION IVP PRN (14:19)
--- NOTE | 2017-04-02 17:28 | Discharge Summary ---
Discharge Plan - Med Rec/Dispo Referrals/Follow Up: Pa Rodrigues MD [Physician] - (April 17 or ) Additional Instructions: Nothing per vagina for 6 weeks. Hysterectomy instructions sheet. Prescriptions: New Peg 3350 17 G Packet [Miralax] 8 - 17 gm PO DAILY PRN #5 bottle PRN Reason: Constipation Hydrocodone/APAP 5/325 [[place] 5/325] 1 - 2 tab PO Q5H PRN #30 PRN Reason: Pain Continue Atorvastatin Calcium 1 tab PO HS #0 tab Ferrous Sulfate [Iron] 1 tab PO WB #0 tab Folic Acid 1 tab PO DAILY #0 tab Magnesium Oxide [Magnesium] 250 mg PO DAILY #0 tab Triamterene-Hctz 37.5-25 mg Cp 1 tab PO DAILY Cholecalciferol (Vitamin D3) [Vitamin D3] 3,000 unit PO DAILY Montelukast [Singulair] 1 tab PO DAILY Nabumetone [Relafen] 500 mg PO BID Meloxicam 7.5 mg PO BID #0 tab Tramadol HCl 50 mg PO Q4H PRN #0 tab PRN Reason: Pain - Disposition 01 Discharged Home, Self-Care
--- NOTE | 2017-04-02 17:34 | Discharge Summary ---
Discharge Information Date of admission: 03/30/17 09:54 Attending Physician: Pa Rodrigues MD Primary care physician: MD QUITA Maciel Consults: 03/30/17 07:12 Consult to Anesthesiology [CONS] Routine Consulting Provider: DAMIAN Del Rio Reason For Exam: ROBOTIC ASSISTED LAPAROSCOPIC BSTO - Discharge Diagnosis (1) Colon cancer, ascending Status: Acute (2) High risk of ovarian cancer Status: Acute (3) Breast cancer Qualifiers: Breast location: unspecified site of breast Estrogen receptor status: unspecified Patient sex: female Laterality: unspecified laterality Qualified Code(s): C50.919 - Malignant neoplasm of unspecified site of unspecified female breast Status: Acute - Procedures Procedures: 03-30-2017 PROCEDURE, Dr. Sumaya Estrada Robotic-assisted laparoscopic hysterectomy and bilateral salpingo-oophorectomy. PROCEDURE Dr. Pa Rodrigues Robotic-assisted laparoscopic right hemicolectomy. - Laboratory Labs: 04/02/17 04:29 04/02/17 04:29 - Microbiology Microbiology 03/30/17 10:14 Urine, Clean Catch/Voided Urine Culture - Final No Growth After 2 Days - Pathology Pending at time of discharge History of Present Illness HPI: 03-30-2017 BRIEF HISTORY/INDICATIONS Mrs. Ragland is a 62-year-old female who had a history for anemia of unknown etiology. Should did undergo bidirectional endoscopy and unfortunately was found to have a suspicious lesion involving the ileocecal valve region. This was biopsied and returned as that of adenocarcinoma. Patient also had known breast cancer. It was elected that we would initially proceed with surgical management of her colon cancer before proceeding with management of her breast cancer. The patient was sent to Oncology and did undergo genetic testing. 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 It was therefore also recommended at the same setting that she undergo hysterectomy and bilateral salpingo-oophorectomy. This was performed by Dr. Sumaya Estrada. This portion of the procedure will be dictated by Dr. Estrada. Hospital Course Hospital course: 03/30/2017 Mrs. Ragland is a 62-year-old female who had a history for anemia of unknown etiology. Should did undergo bidirectional endoscopy and unfortunately was found to have a suspicious lesion involving the ileocecal valve region. This was biopsied and returned as that of adenocarcinoma. Patient also had known breast cancer. It was elected that we would initially proceed with surgical management of her colon cancer before proceeding with management of her breast cancer. The patient was sent to Oncology and did undergo genetic testing. 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 It was therefore also recommended at the same setting that she undergo hysterectomy and bilateral salpingo- oophorectomy. This was performed by Dr. Sumaya Estrada. This portion of the procedure will be dictated by Dr. Estrada. For completeness please refer to notes included in the patient's chart. 03/31/2014 A 62-year-old female status post robotic-assisted laparoscopic right hemicolectomy secondary to invasive adenocarcinoma, robotic-assisted AIRAM-BSO performed by Dr. Estrada. Patient currently doing quite well. PLAN We will go ahead and keep the patient in the ICU today for closer monitoring. We will plan on transferring out tomorrow. Dr. Tobin who will be covering for me over the course of the remaining weekend. I am pleased with the patient's progress at this time. 04/01/2014 IMPRESSION Doing well following robotic-assisted laparoscopic right hemicolectomy on 2016. PLAN 1. Discontinue Hatch catheter. 2. Transfer patient from intensive care unit out to a room on the surgery unit today. 04/02/17 09:43 Will go ahead and hep lock IV fluids. DC PRODUCE FIELD MERCHANDISER. Advance diet as tolerated. She had several BM's during the afternoon and is eager to be discharged. Will discharge to home. Discharge instructions discussed and questions answered. DVT Prophylaxis: SCD's, Lovenox GI Prophylaxis: Protonix Discharge Plan - Med Rec/Dispo Referrals/Follow Up: Pa Rodrigues MD [Physician] - (April 17 or ) Additional Instructions: Nothing per vagina for 6 weeks. Hysterectomy instructions sheet. Follow up with Dr. Estrada as directed. Prescriptions: New Peg 3350 17 G Packet [Miralax] 8 - 17 gm PO DAILY PRN #5 bottle PRN Reason: Constipation Hydrocodone/APAP 5/325 [[place] 5/325] 1 - 2 tab PO Q5H PRN #30 PRN Reason: Pain Continue Atorvastatin Calcium 1 tab PO HS #0 tab Ferrous Sulfate [Iron] 1 tab PO WB #0 tab Folic Acid 1 tab PO DAILY #0 tab Magnesium Oxide [Magnesium] 250 mg PO DAILY #0 tab Triamterene-Hctz 37.5-25 mg Cp 1 tab PO DAILY Cholecalciferol (Vitamin D3) [Vitamin D3] 3,000 unit PO DAILY Montelukast [Singulair] 1 tab PO DAILY Nabumetone [Relafen] 500 mg PO BID Meloxicam 7.5 mg PO BID #0 tab Tramadol HCl 50 mg PO Q4H PRN #0 tab PRN Reason: Pain - Disposition 01 Discharged Home, Self-Care
--- NOTE | 2017-04-03 11:51 | Discharge Summary ---
Discharge Plan - Med Rec/Dispo Additional Instructions: Nothing per vagina for 6 weeks. Hysterectomy instructions sheet. Prescriptions: No Action Atorvastatin Calcium 1 tab PO HS #0 tab Ferrous Sulfate [Iron] 1 tab PO WB #0 tab Folic Acid 1 tab PO DAILY #0 tab Magnesium Oxide [Magnesium] 250 mg PO DAILY #0 tab Triamterene-Hctz 37.5-25 mg Cp 1 tab PO DAILY Cholecalciferol (Vitamin D3) [Vitamin D3] 3,000 unit PO DAILY Montelukast [Singulair] 1 tab PO DAILY Nabumetone [Relafen] 500 mg PO BID Meloxicam 7.5 mg PO BID #0 tab Tramadol HCl 50 mg PO Q4H PRN #0 tab PRN Reason: Pain - Disposition 01 Discharged Home, Self-Care
== END 2017-04-02 18:00 | disposition home or self-care, planned readmission (81) | DRG 331 ==
LOC: CCU 09:54 → SRG 04-01 10:13
PROVIDERS: ADMIT Surgery; ATTEND Surgery